=== PATIENT | female | born 1985 | race African-American/Black ===

== ENCOUNTER 2017-09-21 18:27 | Emergency (ER) | payer MEDICAID ==
[~2017-09-21] VITALS: Ht 162.6 cm; Wt 55.0 kg
[2017-09-21 19:18] LABS: BASOPHILS % 0.6 % (0.0-2.0); EOSINOPHILS % 0.8 % (0.0-5.0); HEMATOCRIT. 42.1 % (36.0-48.0); HEMOGLOBIN. 14.7 g/dL (12.0-16.0); LYMPHOCYTES % 28.5 % (20.0-50.0); MEAN CORPUSCULAR HEMOGLOBIN 34.5 pg (28.0-32.0); MEAN PLATELET VOLUME 6.9 fl (7.4-10.4); MONOCYTES % 8.9 % (2.0-8.0); NEUTROPHILS % 61.2 % (40.0-76.0); PLATELET 272 x1000/uL (130-400); RED BLOOD CELL COUNT 4.25 mill/uL (4.2-5.4); RED CELL DISTRIBUTION WIDTH 12.6 % (11.6-14.6)
[2017-09-21 19:19] LABS: CHLORIDE 94 mEq/L (98-107)
[2017-09-21 19:21] LABS: PROTHROMBIN TIME 10.5 sec (9.4-11.6)
[2017-09-21 19:30] LABS: CARBON DIOXIDE 27 mEq/L (21-32)
[2017-09-21 19:33] LABS: HCG SCREEN NEGATIVE
[2017-09-21] MEDS ORDERED: LEVETIRACETAM 500MG PREMIX 100 ML IV ONE (20:00)
[2017-09-21] MEDS ORDERED: ACETAMINOPHEN 325MG TABLET PO ONE (21:00)
[2017-09-21 21:24] VITALS: BP 132/75
== END 2017-09-21 22:01 | disposition home or self-care (01) ==
LOC: ER 18:27
DX: G40.409 Other generalized epilepsy and epileptic syndromes, not intractable, without status epilepticus (principal); E11.9 Type 2 diabetes mellitus without complications
CPT/HCPCS: 36415; 80053; 84703; 85025; 85610; 85730; 96365; 99284; J1953